=== PATIENT | female | born 1955 | race Caucasian/White ===

== ENCOUNTER 2021-09-28 18:28 | Emergency (ER) | payer BC ==
[~2021-09-28] VITALS: Ht 160 cm; Wt 59.0 kg
[2021-09-28] MEDS ORDERED: VENTOLIN HFA18 GM INH (19:18)
== END 2021-09-28 19:24 | disposition home or self-care (01) ==
LOC: ER 18:32
DX: U07.1 COVID-19 (principal); R05.9 Cough, unspecified; I10 Essential (primary) hypertension
CPT/HCPCS: 99282